=== PATIENT | female | born 1935 | race Hispanic/Latino ===

== ENCOUNTER 2022-06-23 19:38 | Emergency (ER) | payer SELFPAY ==
[~2022-06-23] VITALS: Ht 91.4 cm; Wt 49.9 kg
[2022-06-23 20:26] LABS: BASOPHILS % 0.3 % (0.0-1.0); EOSINOPHILS % 0.2 % (0.0-6.0); HEMATOCRIT 37.5 % (34.2-44.1); HEMOGLOBIN 11.9 g/dL (12.0-16.0); LYMPHOCYTES # (AUTO) 1.2 (1.0-3.2); LYMPHOCYTES % 12.2 % (18.0-39.1); MEAN CORPUSCULAR HEMOGLOBIN 27.9 pg (28-32); MEAN CORPUSCULAR HGB CONC 31.7 g/dL (31-35); MEAN CORPUSCULAR VOLUME 87.8 fL (81-99); MONOCYTES # (AUTO) 0.7 (0.2-0.8); MONOCYTES % 6.6 % (4.4-11.3); NEUTROPHILS # (AUTO) 8.1 (2.1-6.9); NEUTROPHILS % 79.9 % (38.7-80.0); PLATELET COUNT 158 x10e3/uL (140-360); RED BLOOD COUNT 4.27 x10e6/uL (3.6-5.1); RED CELL DISTRIBUTION WIDTH 13.8 % (11.7-14.4)
[2022-06-23 20:31] LABS: CLARITY,URINE HAZY (CLEAR); COLOR,URINE YELLOW (YELLOW); KETONES,URINE NEGATIVE (NEGATIVE); LEUKOCYTE ESTERASE ,URINE SMALL (NEGATIVE); NITRITE,URINE POSITIVE (NEGATIVE); PROTEIN,URINE DIPSTICK 2+ (NEGATIVE); URINE UROBILINOGEN 0.2 mg/dL (0.2 - 1)
[2022-06-23 20:43] LABS: ALBUMIN 2.6 g/dL (3.5-5.0); ALBUMIN/GLOBULIN RATIO 0.6 (0.8-2.0); ANION GAP 13.5 mmol/L (8-16); CALCIUM 7.8 mg/dL (8.4-10.2); CREATININE, SERUM 1.05 mg/dL (0.57-1.11); POTASSIUM 4.5 mmol/L (3.5-5.1)
[2022-06-23 20:45] LABS: BACTERIA,URINE MANY /HPF
[2022-06-23] MEDS ORDERED: CEFDINIR300 MG PO (21:53)
[2022-06-23] MEDS ORDERED: PAXLOVID 150-11 EACH PO (21:53)
[2022-06-23 23:26] VITALS: BP 122/67
== END 2022-06-23 23:25 | disposition home or self-care (01) ==
LOC: ER 19:45
DX: U07.1 COVID-19 (principal); N39.0 Urinary tract infection, site not specified; H54.8 Legal blindness, as defined in USA; Z89.612 Acquired absence of left leg above knee; Z89.611 Acquired absence of right leg above knee; I10 Essential (primary) hypertension; E11.9 Type 2 diabetes mellitus without complications
CPT/HCPCS: 36415; 71045; 80053; 81001; 83880; 85025; 99284; U0002